=== PATIENT | female | born 2000 | race American Indian/Alaskan Native ===

== ENCOUNTER 2018-03-31 18:17 | Outpatient (CLI) | payer OTHER ==
[2018-03-31] MEDS ORDERED: LACTATED RINGERS 1,000 ML IV ONE ×2 (18:55→20:48)
[2018-03-31 19:02] VITALS: BP 114/69
[2018-03-31 19:39] LABS: Bacteria,Urine 1+ /HPF (Negative); Bilirubin,Urine NEG (Negative); Blood,Urine SM (Negative); Color,Urine Straw (Yellow); Mucus,Urine FEW /HPF; Protein,Urine <15 mg/dL mg/dL (Negative); Urobilinogen,Urine < 2.0 mg/dL (<2.0)
[2018-03-31] MEDS ORDERED: ROCEPHIN/NS 1 GM/50 ML 1 GM/50 ML BAG IV ONE (20:16)
== END 2018-03-31 22:13 | disposition home or self-care (01) ==
LOC: TRG 18:17
PROVIDERS: ATTEND Obstetrics & Gynecology Gynecology
DX: O47.02 False labor before 37 completed weeks of gestation, second trimester (principal); Z3A.27 27 weeks gestation of pregnancy
CPT/HCPCS: 59025; 81001; 96360; 96361; J0696; J7120